=== PATIENT | female | born 1990 | race Caucasian/White ===

== ENCOUNTER 2018-10-18 05:40 | Inpatient (IN) | payer OTHER ==
[2018-10-18] MEDS ORDERED: ELECTROLYTE-148 SOLN 500 ML IV ONE (08:14)
[2018-10-18] MEDS ORDERED: ELECTROLYTE-148 SOLN 1,000 ML IV SCH (08:15)
[2018-10-18 08:19] VITALS: BMI 40.6
--- NOTE | 2018-10-18 08:43 | HP ---
Past Medical History - Admission History of Present Illness: 28 yo @ 40 2/7 wks by first trimester ultrasound, EDC 10/16/2018 complicated by: 1. Desires TOLAC First CD, second delivery successful Desires another Counseled extensively throughout 2. Obesity - starting BMI 36 32 lb total weight gain this Early GCT and 26-28 wk GCT WNL EFW 17%ile (6 lb 14 oz) on 10/16/2018 Patient presents with chief complaint of contractions and leakage of fluid. On examination nitrazine negative, contractions Q 3-4 minutes. Patient 3 cm on admission. She denies vaginal bleeding and reports movement History Source: Patient Limitations to Obtaining History: No Limitations - Past Medical History Cardiovascular: No: HTN Pulmonary: No: Asthma Gastrointestinal: No: GERD ...: 3 ...Para: 2 ...Term: 2 ...: 0 ...Spon : 0 ...Induced : 0 ...Multiple Gestation: 0 ...LMP: 01/09/18 ... Weeks Gestation by Dates: 40.2 ...EDC by Dates: 10/16/18 ...EDC by Sono: 10/16/18 Heme/Onc: No: Anemia - Past Surgical History Past Surgical History: Yes: Hx Myomectomy: No Hx Transabdominal Cerclage: No - Smoking History Smoking history: Never smoked Have you smoked in the past 12 months: No - Alcohol/Substance Use Hx Alcohol Use: No History of Substance Use: reports: None - Social History Usual Living Arrangement: Yes: With Spouse History of Recent Travel: No Home Medications - Allergies Allergies/Adverse Reactions: Allergies Allergy/AdvReac Type Severity Reaction Status Date / Time nickel Allergy Mild Rash Verified 10/18/18 07:42 - Home Medications Home Medications: Ambulatory Orders Pnv 29-1 Tablet 1 tab PO DAILY 10/18/18 Family Disease History - Family Disease History Family History: Denies Review of Systems - Review of Systems Constitutional: reports: No Symptoms Cardiovascular: reports: No Symptoms Respiratory: reports: No Symptoms Gastrointestinal: reports: No Symptoms Musculoskeletal: reports: No Symptoms Neurological: reports: No Symptoms Endocrine: reports: No Symptoms Physical Exam - Maternity Vital Signs: Vital Signs Temperature 98.3 F 10/18/18 08:00 Pulse Rate 76 10/18/18 08:00 Respiratory Rate 18 10/18/18 08:00 Blood Pressure 101/58 L 10/18/18 08:00 O2 Sat by Pulse Oximetry (%) Constitutional: Yes: Well Nourished, No Distress, Calm Cardiovascular: Yes: Regular Rate and Rhythm Lungs: Clear to auscultation - Abdominal Exam/OB Number of Fetuses: Single Presentation: Vertex Contractions: Yes Regularity: Regular Intensity: Moderate Monitor Mode: External Category: I Accelerations: Non-Uniform Decelerations: None - Vaginal Exam/OB Vaginal Bleediing: No Dilatation (cm): 3 Effacement (%): 70 Amniotic Membrane Status: Intact Nitrazine Test: Negative Station: -3 - Physical Exam Extremities: Yes: WNL Edema: LLE: Trace, RLE: Trace ...Motor Strength: WNL Psychiatric: Yes: Alert, Oriented - Labs Lab Results: PNL - A positive, antibody negative; RPR NR; HIV negative; HBs AG neg; HCV neg; Hg Eileen AA; Sequential 1&2 WNL; Inheritest WNL; GCT (early and ) - WNL; GBS neg Hemorrhage Risk Assessment - Risk Factors Medium Risk Factors: Yes: None High Risk Factors: Yes: Active bleeding on admission Risk Score: 3 Risk Level: High Risk Assessment/Plan 28 yo desires TOLAC 1. Admit to L&D. Patient desires . Patient counseled multiple times during course. Reviewed risks of Trial of Labor after Delivery, including but not limited to: - Risk of failed trial of labor resulting in a repeat delivery in approximately 20-40% of patients who attempt - Risk of rupture of uterus resulting in emergency delivery (0.2 - 1.5 % risk) - Risk of , neurologic compromise - Rare risk of maternal 2. GBS negative 3. Category I FHT 4. Desires epidural for pain control 5. Will proceed with expectant management
[2018-10-18 08:44] LABS: BASO % 0.2 % (0-2.0); EOS % 0.3 % (0-4.5); HEMOGLOBIN 11.7 GM/dL (10.7-15.3); MCH 26.6 pg (25.7-33.7); MCHC 33.6 g/dl (32.0-36.0); MEAN CELL VOLUME 79.3 fl (80-96); MEAN PLT VOLUME 8.6 fl (7.5-11.1); MONO % 4.3 % (3.8-10.2); NEUT % 79.2 % (42.8-82.8); PLATELET COUNT 223 K/MM3 (134-434); RBC 4.41 M/mm3 (3.60-5.2); RDW 13.6 % (11.6-15.6); WHITE BLOOD COUNT 10.7 K/mm3 (4.0-10.0)
[2018-10-18 08:55] LABS: CALCIUM 8.2 mg/dL (8.5-10.1); CREATININE 0.5 mg/dL (0.55-1.3); POTASSIUM 4.1 mmol/L (3.5-5.1)
[2018-10-18 09:07] LABS: INR 0.94 (0.83-1.09); PROTHROMBIN TIME (PATIENT) 11.1 SEC (9.7-13.0)
[2018-10-18 09:10] LABS: ACTIVATED PTT 26.5 SECONDS (25.2-36.5)
[2018-10-18] MEDS ORDERED: FENTANYL/BUPIVACAINE/NS/PF - PCEA - 50 ML DISP.SYRIN EP ONE (09:12)
[2018-10-18] MEDS ORDERED: BUPIVACAINE HCL/PF 0.25% (2.5MG/ML) 10 ML VIAL ONE (09:18)
[2018-10-18] MEDS ORDERED: morphine SULFATE/PF 0.5 MG/ML (2cc Syringe - QUVA) ONE (09:28)
[2018-10-18] MEDS ORDERED: ceFAZolin SODIUM 1 GM VIAL ONE (09:37)
[2018-10-18] MEDS ORDERED: OXYTOCIN 10 UNITS/ML VIAL ONE (09:38)
[2018-10-18] MEDS ORDERED: OXYTOCIN 20 UNITS in 0.9% NS 20 UNIT/1,000 ML INFUS.BAG IV ONE ×2 (09:39→10:58)
[2018-10-18 10:28] LABS: VENOUS PC02 64.2 mmHg (41-51)
[2018-10-18 10:31] LABS: ARTERIAL BLD GAS O2 SATURATION 9.1 % (95-98); ARTERIAL BLOOD GAS BASE EXCESS -11.2 meq/l (-2-2)
[2018-10-18 10:37] LABS: ARTERIAL BLOOD GAS PCO2 73.7 mmHg (35-45); ARTERIAL BLOOD GAS pH 7.09 (7.35-7.45); VENOUS PO2 16.5 mmHg (30-40)
[2018-10-18 10:38] LABS: VENOUS PH 7.14 (7.31-7.41)
[2018-10-18] MEDS ORDERED: oxyCODONE HCL 5 MG TABLET PO PRN (10:43)
[2018-10-18] MEDS ORDERED: BENZOCAINE 20% 57 GM BOTTLE TP PRN (10:43)
[2018-10-18] MEDS ORDERED: IBUPROFEN 800 MG/8 ML IJ IVPB PRN (10:43)
[2018-10-18] MEDS ORDERED: METHYLERGONOVINE MALEATE 0.2 MG/1 ML AMP IM PRN (10:43)
[2018-10-18] MEDS ORDERED: SENNOSIDES/DOCUSATE COMBO (SENNA PLUS) TABLET (UD) PO PRN (10:43)
--- NOTE | 2018-10-18 10:49 | PN ---
Progress Note (short form) - Note Progress Note: late entry note Called to bedside for decel to 90s SVE 6 cm FSE applied O2 via facemask change in maternal position to R lateral, left lateral without appropriate recovery of heart rate CD called, anesthesia prsent, Neonatology made aware doppler in OR 120s
--- NOTE | 2018-10-18 10:57 | PN ---
"Delivery - Delivery Section: Repeat EBL (cc): 800 Delivery, Single - Condition of Infant Gender: Female Weight: 7 lb 2 oz Position: Left, OA - 1 Minute Total Score: 9 5 Minutes Total Score: 9 - Feeding Plan Initial Plan: Exclusive throughout hospitalization Remarks - Remarks Remarks: Surgeon: MD Ayo | Auto Clocks Repairer: MD Charly | Anesthesia: MD Anastacio Surgery: repeat delivery and bilateral tubal ligation Findings: adhesions uterus to anterior abdominal wall, normal appearing fallopian tubes and ovaries, female infant, ROT position, 9,9; wt 7lb 2 oz ; 19 inches; normal appearing bilateral fallopian tubes Dictation: [id number]"
[2018-10-18] MEDS ORDERED: CITRIC ACID/SODIUM CITRATE 30 ML UNIT-DOSE CUP PO ONE (10:59)
[2018-10-18] MEDS ORDERED: TUBERCULIN PPD 5 TU/0.1ML SYRINGE (IN PATIENT USE ONLY) ID ONE ×2 (12:00→19:00)
[2018-10-18] MEDS: OXYTOCIN 20 UNITS in 0.9% NS 20 UNIT/1,000 ML INFUS.BAG IV SCH ×2 (12:27→21:10)
--- NOTE | 2018-10-18 14:49 | OP ---
DATE OF OPERATION: 10/18/2018 SURGEON: Lois Rollins MD LIEUTENANT COLONEL: Feliciano Parks MD ANESTHESIA: Kaci Chaves MD INDICATION: Patient is a 28-year-old who desired a trial of labor with a deceleration in the 90s for approximately 8 minutes for emergent repeat C- section for a nonreassuring tracing. FINDINGS: Female in ROT position, Apgars 9 and 9, weight 7 pounds 2 ounces, 19 inches. Severe adhesions from the uterus to anterior abdominal wall. Body cord noted upon delivery. ESTIMATED BLOOD LOSS: 800 ml DESCRIPTION OF PROCEDURE: Consents reviewed and signed. After anesthesia was found to be adequate, patient was prepped and draped in normal sterile fashion. Betadine prep was used. An approximately 11-cm skin incision was made with a knife and carried down to the underlying rectus fascia. Using the knife, the fascia was incised laterally using the knife, and the inferior portion of the fascial incision was tented up using Frederick clamps, dissected off the underlying rectus muscles using the Domingo scissors. Attention was brought to the superior portion where, in a similar fashion, was tented up using Frederick clamps and dissected off the underlying rectus muscle using the Domingo scissors. The rectus muscles were in the midline, and the peritoneum was entered sharply. A uterine window was noted from previous . It was entered sharply and extended laterally bluntly. 's head was brought to the hysterotomy site. 's head and body were delivered without difficulty. Cord was clamped and cut. Cord blood and cord gases were collected and sent. The placenta was manually extracted. Uterus was cleared of all clot and debris. The uterus was closed using 0 Biosyn in a running layer. A uterine extension was noted on the right side, which was repaired using 3-0 Biosyn in a running layer. Lacerations were noted, and they were all repaired using 3-0 Biosyn in running layer. Second layer of the hysterotomy site was performed using a 0 Biosyn in a running layer. The patient desired a bilateral tubal ligation. Consents were reviewed and confirmed. Attention was brought to the left fallopian tube, was followed to the fimbriated end. A 1-cm portion of the fallopian tube was suture ligated using 0 gut suture. Attention was brought to the right fallopian tube, was followed to the fimbriated end. A 1-cm portion was suture ligated using a 0 plain gut. Good hemostasis was noted. Gutters were cleared of all clot and debris. The adhesions were taken down. Good hemostasis was noted. The rectus muscle was reapproximated in an interrupted fashion using 0 Biosyn. The fascia was closed using 0 Vicryl in a running fashion. The subcutaneous fat was closed using 0 Vicryl in a running fashion. Skin was reapproximated using 3-0 Vicryl. Patient tolerated the procedure well. Estimated blood loss was 800 mL. Patient was brought to recovery room in stable condition. Brenda [id number] MTDD
[2018-10-18] MEDS: CEFAZOLIN 1 GM/D5W 1 GM/50 ML BAG IVPB SCH (18:01)
[2018-10-19] MEDS: CEFAZOLIN 1 GM/D5W 1 GM/50 ML BAG IVPB SCH ×2 (01:58→09:28)
[2018-10-19] MEDS: IBUPROFEN 600 MG TABLET (FP) PO PRN ×2 (05:30→17:46)
[2018-10-19] MEDS: SIMETHICONE 80 MG TAB.CHEW (FP) PO PRN ×2 (05:30→17:48)
[2018-10-19] MEDS: oxyCODONE HCL 5 MG TABLET PO PRN (05:31)
[2018-10-19] MEDS: ACETAMINOPHEN 325 MG TABLET (FP) PO PRN ×2 (05:32→17:47)
--- NOTE | 2018-10-19 06:49 | PN ---
Progress Note (short form) - Note Progress Note: pod 1s/p repeat c/s, has mild cramp, no excess vaginal bleeding CBC, BMP 10/18/18 08:00 10/18/18 08:00 Last Vital Signs Temp Pulse Resp BP Pulse Ox 98.8 F 71 18 117/57 L 99 10/19/18 06:00 10/19/18 06:00 10/19/18 06:00 10/19/18 06:00 10/18/18 12:10 abdomen soft, no distension, no cva incision dry, clean no calf tenderness plan ambulate cbc pain management advance diet
[2018-10-19 08:00] LABS: BASO % 0.2 % (0-2.0); EOS % 0.3 % (0-4.5); HEMATOCRIT 30.8 % (32.4-45.2); HEMOGLOBIN 10.2 GM/dL (10.7-15.3); LYMPH % 13.2 % (8-40); MCH 26.5 pg (25.7-33.7); MEAN CELL VOLUME 80.2 fl (80-96); MEAN PLT VOLUME 8.2 fl (7.5-11.1); MONO % 5.7 % (3.8-10.2); NEUT % 80.6 % (42.8-82.8); RBC 3.84 M/mm3 (3.60-5.2)
[2018-10-19 08:28] LABS: PLATELET COUNT 193 K/MM3 (134-434)
[2018-10-19] MEDS: ENOXAPARIN NA (PORCINE) 40 MG/0.4 ML DISP.SYRIN SQ SCH (09:28)
[2018-10-19] MEDS: PRENATAL VITAMINS W/ FOLIC ACID TABLET (FP) PO SCH (10:24)
[2018-10-19] MEDS ORDERED: BISACODYL 10 MG SUPP.RECT RC PRN (10:44)
--- NOTE | 2018-10-19 17:13 | PN ---
Progress Note (short form) - Note Progress Note: Anesthesia post op note POD #1 s/p c section under spinal anesthesia. pat seen and examined. VSS. No apparent post anesthesia complications.
[2018-10-20] MEDS: IBUPROFEN 600 MG TABLET (FP) PO PRN ×2 (01:17→13:27)
[2018-10-20] MEDS: ACETAMINOPHEN 325 MG TABLET (FP) PO PRN (01:17)
[2018-10-20] MEDS: SIMETHICONE 80 MG TAB.CHEW (FP) PO PRN ×2 (01:17→13:27)
--- NOTE | 2018-10-20 08:46 | PN ---
Post Progress Note - Subjective Subjective: Patient without acute complaints. Reports tolerating oral intake without nausea or vomiting. Ambulating without dizziness. Denies fevers or chills. Pain well controlled with oral pain medication. without difficulty. Passing flatus Post Day: 2 Type of Delivery: Repeat C/S Vital Signs: Vital Signs Temperature 98.5 F 10/19/18 22:00 Pulse Rate 80 10/19/18 22:00 Respiratory Rate 20 10/19/18 22:00 Blood Pressure 105/68 10/19/18 22:00 O2 Sat by Pulse Oximetry (%) 99 10/18/18 12:10 Breast Exam: Yes: Soft Uterus: Yes: Fundus Firm, Fundus @ umbilicus Incision: Yes: Dressing dry and intact, Sutures intact Abdomen/GI: Yes: Abdomen soft Lochia: Yes: Rubra Lochia, amount: Small Extremities: Yes: Calves non-tender Perineum: Yes: Intact Activity: Ambulating - Labs Labs: CBC WBC 12.0 K/mm3 (4.0-10.0) H 10/19/18 07:33 RBC 3.84 M/mm3 (3.60-5.2) 10/19/18 07:33 Hgb 10.2 GM/dL (10.7-15.3) L 10/19/18 07:33 Hct 30.8 % (32.4-45.2) L 10/19/18 07:33 MCV 80.2 fl (80-96) 10/19/18 07:33 MCH 26.5 pg (25.7-33.7) 10/19/18 07:33 MCHC 33.0 g/dl (32.0-36.0) 10/19/18 07:33 RDW 14.0 % (11.6-15.6) 10/19/18 07:33 Plt Count 193 K/MM3 (134-434) 10/19/18 07:33 MPV 8.2 fl (7.5-11.1) 10/19/18 07:33 Absolute Neuts (auto) 9.7 K/mm3 (1.5-8.0) H 10/19/18 07:33 Neutrophils % 80.6 % (42.8-82.8) 10/19/18 07:33 Lymphocytes % 13.2 % (8-40) 10/19/18 07:33 Monocytes % 5.7 % (3.8-10.2) 10/19/18 07:33 Eosinophils % 0.3 % (0-4.5) 10/19/18 07:33 Basophils % 0.2 % (0-2.0) 10/19/18 07:33 Nucleated RBC % 0 % (0-0) 10/19/18 07:33 Assessment/Plan 28 yo P2 s/p repeat c/section VSS, Afebrile H/H stable Doing well Encourage ambulation continue routine care
[2018-10-20] MEDS: ENOXAPARIN NA (PORCINE) 40 MG/0.4 ML DISP.SYRIN SQ SCH (10:33)
[2018-10-20] MEDS: PRENATAL VITAMINS W/ FOLIC ACID TABLET (FP) PO SCH (10:36)
[2018-10-20] MEDS: OXYTOCIN 20 UNITS in 0.9% NS 20 UNIT/1,000 ML INFUS.BAG IV SCH (13:16)
[2018-10-20] MEDS: oxyCODONE HCL 5 MG TABLET PO PRN (13:25)
[2018-10-21] MEDS: SIMETHICONE 80 MG TAB.CHEW (FP) PO PRN ×3 (05:13→18:07)
[2018-10-21] MEDS: IBUPROFEN 600 MG TABLET (FP) PO PRN ×3 (05:13→18:08)
[2018-10-21 07:45] LABS: BASO % 0.5 % (0-2.0); HEMATOCRIT 27.4 % (32.4-45.2); HEMOGLOBIN 9.1 GM/dL (10.7-15.3); LYMPH % 21.9 % (8-40); MCH 26.7 pg (25.7-33.7); MCHC 33.3 g/dl (32.0-36.0); MEAN PLT VOLUME 7.9 fl (7.5-11.1); NEUT % 71.6 % (42.8-82.8); RBC 3.43 M/mm3 (3.60-5.2); RDW 13.7 % (11.6-15.6); WHITE BLOOD COUNT 8.3 K/mm3 (4.0-10.0)
--- NOTE | 2018-10-21 08:15 | PN ---
Post Progress Note - Subjective Subjective: Patient without acute complaints. Reports tolerating oral intake without nausea or vomiting. Ambulating without dizziness. Denies fevers or chills. Pain well controlled with oral pain medication. however has nipple pain Passing flatus. Post Day: 3 Type of Delivery: Repeat C/S Vital Signs: Vital Signs Temperature 98.3 F 10/20/18 20:53 Pulse Rate 90 10/20/18 20:53 Respiratory Rate 20 10/20/18 20:53 Blood Pressure 122/71 10/20/18 20:53 O2 Sat by Pulse Oximetry (%) 99 10/18/18 12:10 Breast Exam: Yes: Soft, Other (mild nipple erythema). No: Cracked Nipples Uterus: Yes: Fundus Firm, Fundus below umbilicus Incision: Yes: Sutures intact. No: Redness, Oozing Abdomen/GI: Yes: Abdomen soft, Tender (minimal), Passing flatus, Tolerating PO. No: Abdominal Distention Lochia: Yes: Serosa Lochia, amount: Small Extremities: Yes: Calves non-tender, Edema (trace) Activity: Ambulating - Labs Labs: CBC WBC 12.0 K/mm3 (4.0-10.0) H 10/19/18 07:33 RBC 3.84 M/mm3 (3.60-5.2) 10/19/18 07:33 Hgb 10.2 GM/dL (10.7-15.3) L 10/19/18 07:33 Hct 30.8 % (32.4-45.2) L 10/19/18 07:33 MCV 80.2 fl (80-96) 10/19/18 07:33 MCH 26.5 pg (25.7-33.7) 10/19/18 07:33 MCHC 33.0 g/dl (32.0-36.0) 10/19/18 07:33 RDW 14.0 % (11.6-15.6) 10/19/18 07:33 Plt Count 193 K/MM3 (134-434) 10/19/18 07:33 MPV 8.2 fl (7.5-11.1) 10/19/18 07:33 Absolute Neuts (auto) 9.7 K/mm3 (1.5-8.0) H 10/19/18 07:33 Neutrophils % 80.6 % (42.8-82.8) 10/19/18 07:33 Lymphocytes % 13.2 % (8-40) 10/19/18 07:33 Monocytes % 5.7 % (3.8-10.2) 10/19/18 07:33 Eosinophils % 0.3 % (0-4.5) 10/19/18 07:33 Basophils % 0.2 % (0-2.0) 10/19/18 07:33 Nucleated RBC % 0 % (0-0) 10/19/18 07:33 Assessment/Plan 28 yo PPD # 3 s/p repeat CD, afebrile, vital signs stable, doing well 1. Continue routine postoperative care. 2. Encourage ambulation and incentive spirometer use 3. Continue oral pain medication 4. Encouraged lanolin nipple cream; is currently using nipple sheilds Encouraged continued latch assessment and 5. Anticipate discharge home postoperative day #4
[2018-10-21 08:54] LABS: PLATELET COUNT 207 K/MM3 (134-434)
[2018-10-21] MEDS: ENOXAPARIN NA (PORCINE) 40 MG/0.4 ML DISP.SYRIN SQ SCH (10:10)
[2018-10-21] MEDS: PRENATAL VITAMINS W/ FOLIC ACID TABLET (FP) PO SCH (10:10)
[2018-10-21] MEDS: ACETAMINOPHEN 325 MG TABLET (FP) PO PRN ×2 (13:48→18:08)
[2018-10-21] MEDS: OXYTOCIN 20 UNITS in 0.9% NS 20 UNIT/1,000 ML INFUS.BAG IV SCH (15:07)
[2018-10-22] MEDS: SIMETHICONE 80 MG TAB.CHEW (FP) PO PRN (09:48)
[2018-10-22] MEDS: PRENATAL VITAMINS W/ FOLIC ACID TABLET (FP) PO SCH (09:48)
[2018-10-22] MEDS: IBUPROFEN 600 MG TABLET (FP) PO PRN (09:49)
[2018-10-22] MEDS: ACETAMINOPHEN 325 MG TABLET (FP) PO PRN (09:49)
[2018-10-22] MEDS: ENOXAPARIN NA (PORCINE) 40 MG/0.4 ML DISP.SYRIN SQ SCH (09:49)
--- NOTE | 2018-10-22 11:07 | PN ---
Post Progress Note - Subjective Subjective: Patient reports headache - started yesterday, resolved with rest Recurred this morning, frontal in nature, sees "floaters" Denies RUQ pain, denies scotomoata Reports tolerating oral intake without nausea or vomiting. Ambulating without dizziness. Denies fevers or chills. Pain well controlled with oral pain medication. Desires to breastfeed, however sore nipples and suspect tongue tie. Passing flatus. Post Day: 4 Type of Delivery: Repeat C/S Vital Signs: Vital Signs Temperature 98.3 F 10/21/18 22:00 Pulse Rate 80 10/21/18 22:00 Respiratory Rate 20 10/21/18 22:00 Blood Pressure 114/68 10/21/18 22:00 O2 Sat by Pulse Oximetry (%) 99 10/18/18 12:10 Breast Exam: Yes: Engorged, Cracked Nipples Uterus: Yes: Fundus Firm Incision: Yes: Dressing dry and intact, Sutures intact. No: Redness, Oozing Abdomen/GI: Yes: Abdomen soft, Tender (mild incisional), Passing flatus, Tolerating PO. No: Abdominal Distention Lochia: Yes: Rubra, Serosa Lochia, amount: Small Extremities: Yes: Calves non-tender, Edema (trace) Activity: Ambulating - Labs Labs: CBC WBC 8.3 K/mm3 (4.0-10.0) 10/21/18 06:43 RBC 3.43 M/mm3 (3.60-5.2) L 10/21/18 06:43 Hgb 9.1 GM/dL (10.7-15.3) L 10/21/18 06:43 Hct 27.4 % (32.4-45.2) L 10/21/18 06:43 MCV 80.0 fl (80-96) 10/21/18 06:43 MCH 26.7 pg (25.7-33.7) 10/21/18 06:43 MCHC 33.3 g/dl (32.0-36.0) 10/21/18 06:43 RDW 13.7 % (11.6-15.6) 10/21/18 06:43 Plt Count 207 K/MM3 (134-434) 10/21/18 06:43 MPV 7.9 fl (7.5-11.1) 10/21/18 06:43 Absolute Neuts (auto) 6.0 K/mm3 (1.5-8.0) 10/21/18 06:43 Neutrophils % 71.6 % (42.8-82.8) 10/21/18 06:43 Lymphocytes % 21.9 % (8-40) D 10/21/18 06:43 Monocytes % 5.0 % (3.8-10.2) 10/21/18 06:43 Eosinophils % 1.0 % (0-4.5) D 10/21/18 06:43 Basophils % 0.5 % (0-2.0) 10/21/18 06:43 Nucleated RBC % 0 % (0-0) 10/21/18 06:43 Assessment/Plan 28 yo PPD # 4 s/p repeat CD, afebrile, vital signs stable, doing well 1. S/p evaluation by anesthesia - low suspicion for spinal headache Encouraged rest, hydration, NSAID use PRN 2. Patient stable for discharge home today. 3. Patient encouraged to contact MD for: - Severe pain not controlled by oral pain medication - Fevers or chills - Nausea or vomiting, intolerance of oral intake - Incision redness, tenderness or discharge 4. Patient to follow up in office in 1-2 weeks for incision check, 4-6 weeks for visit
[2018-10-22 12:35] VITALS: BP 112/70; PULSE 70; TEMP 98.7
--- NOTE | 2018-10-24 17:49 | PATH ---
Surgical Pathology Report Patient Name: EULALIA IGLESIAS [facility]. Rec. #: [id number] /Age/Gender: 1990 (Age: 28) / F Account: [id number] Location: [facility] OBS/DIESEL ENGINE PIPE FITTER Taken: 10/18/2018 Received: 10/19/2018 Reported: 10/24/2018 Physicians: Lois Rollins Specimen(s) Received A: PLACENTA B: PORTION LEFT FALLOPIAN TUBE C: PORTION RIGHT FALLOPIAN TUBE Clinical History , x1, term , nonreassuring heart rate Final Diagnosis A. PLACENTA, SECTION: 432 G THIRD TRIMESTER PLACENTA WITH TRIVASCULAR UMBILICAL CORD AND UNREMARKABLE PLACENTAL MEMBRANES. B. PORTION OF FALLOPIAN TUBE, LEFT, PARTIAL EXCISION: FULL LUMINAL PORTION OF UNREMARKABLE FALLOPIAN TUBE. C. PORTION OF FALLOPIAN TUBE, RIGHT, PARTIAL EXCISION: FULL LUMINAL PORTION OF UNREMARKABLE FALLOPIAN TUBE. Electronically Signed Sara Johnson M.D. Gross Description A. The specimen is received fresh labeled placenta and is a 432 gram, 16.0 x 12.5 x 3.3 cm. placenta with attached membranes and umbilical cord. The attached membranes are corbett, translucent with focal opacities and insert marginally. The umbilical cord measures 23 cm. in length and averages 1.1 cm. in diameter. The cord inserts eccentrically, 2 cm. to the nearest margin. No true knots or strictures are identified. Cut surface of the umbilical cord reveals 3 vessels. The surface is garcia blue with abundant fibrin deposition and appropriate caliber vessels. The maternal surface is red-brown with focal defects. Sectioning reveals red-brown, spongy parenchyma. No lesions are identified. [employer] sections are submitted in three cassettes as follows: 1- membrane rolls and umbilical cord; 2-3- full thickness sections of placenta. B. Received in formalin labeled "portion of left fallopian tube," is a 0.8 cm in length portion of fallopian tube. No fimbria are present. The outer surface is corbett-go and smooth. Sectioning reveals an unremarkable lumen. [employer] sections are submitted in one cassette. C. Received in formalin labeled "portion of right fallopian tube," is a 1.3 cm in length portion of fallopian tube. No fimbria are present. The outer surface is corbett-go and smooth. Sectioning reveals an unremarkable lumen. [employer] sections are submitted in one cassette. 10/23/2018 [facility]
--- NOTE | 2018-10-25 15:44 | DS ---
Physical Exam-FIELD SALES REPRESENTATIVE Vital Signs: Vital Signs Temperature 98.7 F 10/22/18 10:00 Pulse Rate 70 10/22/18 10:00 Respiratory Rate 18 10/22/18 10:00 Blood Pressure 112/70 10/22/18 10:00 O2 Sat by Pulse Oximetry (%) 99 10/18/18 12:10 Labs: CBC, BMP 10/21/18 06:43 10/18/18 08:00 Delivery - Delivery Section: Repeat Type of Anesthesia: Spinal Episiotomy/Laceration: None EBL (cc): 800 Delivery, Single - Stages of Labor Date 1st Stage Initiatied: 10/18/18 Time 1st Stage Initiated: 04:30 Date of Delivery: 10/18/18 Time of Delivery: 09:44 Time Placenta Delivered: 09:45 - Condition of Infant Ring Spinner/Pedorthist Present: No Gender: Female Weight: 7 lb 2 oz Position: Left, OA Total Hours ROM (Hrs/Mins): 0/25 - 1 Minute Total Score: 9 5 Minutes Total Score: 9 - Feeding Plan Initial Plan: Exclusive throughout hospitalization Discharge Summary Procedures: Principal: delivery Hospital Course: Patient admitted in labor, desired TOLAC Patient progressed to 6 cm, had deceleration to 80s-90s, patient underwent emergent delivery POD # 1 patient ambulated, voiding, passing gas, tolerating oral intake and with adequate pain control. Noted to have mild asymptomatic anemia She fulfilled all criteria for discharge POD #3 Condition: Good - Instructions Diet, Activity, Other Instructions: Follow up in 1 week for incision check Physical activity Resume your normal everyday activity as tolerated no heavy lifting or exercise until seen by your surgeon. You may walk unlimited clair of and climb stairs. You may resume driving the car when you feel safe and comfortable behind the wheel. No sexual activity as instructed. Diet There are no dietary restrictions. Eat healthy, high-fiber foods. Drink 6 to 8 glasses of liquid each day. This will assist in keeping your bowels are regular. Pain management You may take Tylenol or acetaminophen or Ibuprofen (for example, Motrin, Advil etc.) from my pain prescription medication is ordered should be taken as prescribed for moderate to severe pain. Call MD for any of the following: Severe pain not relieved by medication Fever of 101 or higher Excessive bleeding or drainage on dressing Inability to urinate Referrals: Lois Rollins MD [Staff Physician] - Disposition: HOME - Home Medications Comprehensive Discharge Medication List: Ambulatory Orders Pnv 29-1 Tablet 1 tab PO DAILY 10/18/18 Ibuprofen [Motrin -] 600 mg PO QID #60 tablet 10/22/18 Ibuprofen [Motrin -] 600 mg PO QID PRN #60 tablet 10/22/18
== END 2018-10-22 12:20 | disposition home or self-care (01) | DRG 540 ==
LOC: JDEL 05:40 → JLDR 07:30 → J3W 13:20
PROVIDERS: ADMIT Obstetrics & Gynecology; ATTEND Obstetrics & Gynecology
PROC: 10D00Z1 Extraction of Products of Conception, Low, Open Approach (ICD-10-PCS; principal; 2018-10-18)
PROC: 0UL70ZZ Occlusion of Bilateral Fallopian Tubes, Open Approach (ICD-10-PCS; 2018-10-18)
PROC: 0DNW0ZZ Release Peritoneum, Open Approach (ICD-10-PCS; 2018-10-18)
DX: O76 Abnormality in fetal heart rate and rhythm complicating labor and delivery (principal); O34.211 Maternal care for low transverse scar from previous cesarean delivery; O99.214 Obesity complicating childbirth; O99.89 Other specified diseases and conditions complicating pregnancy, childbirth and the puerperium; E66.9 Obesity, unspecified; N73.6 Female pelvic peritoneal adhesions (postinfective); Z3A.40 40 weeks gestation of pregnancy; Z37.0 Single live birth; Z30.2 Encounter for sterilization
CPT/HCPCS: 36415; 36600; 80048; 82803; 85025; 85610; 85730; 86593; 86850; 86900; 86901; 88302-TC; 88307-TC